=== PATIENT | female | born 2000 | race Two or more races ===

== ENCOUNTER 2024-05-18 08:00 | Outpatient (RCR) | payer MEDICAID, SELFPAY ==
--- NOTE | 2024-05-09 16:01 | PTNOTE_ITS ---
PT OP Initial Eval Patient Information Outpatient Physical Therapy Treatment Date: 05/09/24 Visit Reasons: Pain in left shoulder Medical Diagnosis: Left Shoulder Pain Treatment Dx #1: Left Shoulder Pain Treatment Dx #2: Left Shoulder Weakness Start of Care: 05/09/24 Smoking Status Smoking Status: Never smoker Initial Assessment Subjective: Pt is a 23 y/o female reports of chronic left shoulder pain (08/16) with insta bility. Pt's xray showed 8 mm ac joint separation. Pt is pending shoulder MRI. Pt has limitation with lifting, chores, self care, cooking, cleaning, working out, and performing recreational activities. Objective: Left Shoulder AROM: all motions are WNL with end range pain in all plane Left Shoulder MMTs: grossly 3+/5 Left Scapula MMTs: grossly 3+/5 Special Test (+) AC joint compression test Palpation: TTP supraspinatus muscle and upper trape Assessment: Pt demonstrate left shoulder mobility and strength deficits leading to difficulty with ADLs. Pt will attempt physical therapy if pain persist Pt will be refer back to provider for further consultaiton. 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 1) Increase left shoulder AROM WNL in 6 wks to be able to perform overhead motions 2) Decrease shoulder pain to 2/10 in 6 wks to be able to perform recreational activities 3) Increase left shoulder MMTs grossly to 4/5 in 6 wks to be able to perform lifting activities 4) Increase left scapula MMTs grossly to 4-/5 in 6 wks to be able to perform chores 5) Indep with HEP Treatment Plan 1) Manual Therapy 2) Therapeutic Activities 3) Therapeutic Exercises 4) Modalities (ice, heat) Frequency and Duration: 2 x wk for 6 wks Certification Dates: 05/09/24 to 08/09/24 Procedure Charges OP PT Eval Mod Complex 30 minutes: Yes
--- NOTE | 2024-05-18 08:36 | PT.ODAYNRPT ---
PT Outpatient Daily Note OP Daily Note Outpatient Physical Therapy Treatment Date: 05/18/24 Visit Reasons: Pain in left shoulder Subjective: Pt c/o shoulder pain especially with reaching overhead. Objective: Please see flow sheet for ther ex list. Assessment: Pt tolerated interventions with minimal pain and soreness, applied cold pack post PT session. Plan: Assess response to treatment. Length of Time (minutes) of Treatment: 30 Minutes Procedure Charges Therapeutic Exercise 30 minutes: Yes
--- NOTE | 2024-06-14 14:20 | PT.ODS1RPT ---
PT OP Progress/Discharge Note Date of Service: 06/14/24 Progress Note/DC Note Progress Note/Discharge Note: DC Note Patient Information Visit Reasons: Pain in left shoulder Service Discharge Date: 06/14/24 Status Assessment: Pt has been seen for 2 visits (eval + 1 visit). Pt last treated on 05/18/24. Pt no showed 05/16 and 05/25 appt. Pt has been contact multiple times regarding follow up appts without success. At this time Pt will be d/c from care due to non-compliance per attendance policy. Pt did not meet set goals in therapy; thank you for your referrals.
== END 2024-06-06 23:59 | disposition home or self-care (01) ==
LOC: CPTX 08:00
PROVIDERS: PCP Orthopaedic Surgery; Referring Provider Orthopaedic Surgery; Visit Provider Orthopaedic Surgery
DX: M25.512 Pain in left shoulder (principal); R53.1 Weakness; G89.29 Other chronic pain; S43.005D Unspecified dislocation of left shoulder joint, subsequent encounter; X58.XXXD Exposure to other specified factors, subsequent encounter
CPT/HCPCS: 97110; 97162

== ENCOUNTER → 2024-05-18 | Outpatient (CLI) | payer MEDICAID, SELFPAY ==
--- NOTE | 2024-05-18 11:45 | XR_ITS ---
Examination: DATE: 05/18/2024, 11:57 AM Fluoroscopic guided shoulder arthrogram, left shoulder. Indication: Shoulder pain, pre-MR Fluoroscopy time: 1.1 minutes Dose: 2.2 mGy A timeout was completed verifying correct patient, procedure, site, positioning. The patient was placed in a supine position for the arthrogram Technique: Skin over the anterior shoulder is prepped. Local anesthesia obtained with 1% lidocaine, 1 cc divided doses. 22-gauge Chiba needle was passed into the shoulder joint anteriorly, utilizing fluoroscopic guidance. 1 cc of Isoview 300 injected confirming position of the needle tip within the shoulder joint. 12 cc bacteriostatic 0.9% with 0.1cc gadolinium introduced into the shoulder for subsequent MRI arthrogram. The patient was in satisfactory and stable condition at completion of the procedure. Estimated blood loss 0 cc. Findings: Contrast material is present within the shoulder joint indicating successful shoulder arthrogram. Impression: Successful shoulder arthrogram for MRI study to follow. .
--- NOTE | 2024-05-18 12:15 | XR_ITS ---
MRI shoulder, left, without contrast. Date and time: May 18, 2024 at 1349 hrs. Indications: Left shoulder pain radiating to the neck one year Technique: Multiple axial, sagittal and coronal sections of the shoulder have been obtained. Siemens high-resolution 1.5 Hailey MRI scanner is utilized. Axial fat-suppressed sections, TR 2350, TE 18 T2-weighted coronal fat-saturated images, TR 3500, TE 7100 T1-weighted coronal images, TR 500, TE 15 T2-weighted sagittal fat-saturated images, TR 3500, TE 57 T1-weighted sagittal sections, TR 504, TE 13. Findings: Supraspinatus tendon insertion is intact. Infraspinatus tendon insertion is intact. Subscapularis insertion is intact. Subscapularis bursa is mild seen. Long head of the biceps is in the bicipital groove. No definite tear of the biceps superior labral anchor is seen. Retraction of the musculotendinous junction of the rotator cuff is not seen . Tendinosis pattern is now seen. Distance between the acromium and humeral head is 3.7 mm Atrophy of the supraspinatus muscle is now seen. Atrophy of the infraspinatus muscle is now seen. Sagittal sections demonstrate a horizontal acromion. Acromioclavicular joint demonstrates mild osteoarthritis . Osacromiale is not identified. Fraying and irregularity anterior superior labral margin. Bony glenoid fossa on the sagittal sections does not demonstrate osseous defect. Occult fracture or area of avascular necrosis is not seen. Acromioclavicular joint separation is not visible. Defect in the posterolateral margin of the humeral head is not seen Impression: Rotator cuff intact Rotator cuff impingement syndrome Fraying and irregularity anterior superior labral margins
[2024-05-18 12:54] LABS: HCG Qualitative,Urine Negative
== END | disposition home or self-care (01) ==
LOC: SDIM 11:21
PROVIDERS: Referring Provider Orthopaedic Surgery; Visit Provider Orthopaedic Surgery
DX: M25.512 Pain in left shoulder (principal); M25.812 Other specified joint disorders, left shoulder
CPT/HCPCS: 23350; 73040; 73221; 81025; A9579; Q9967